=== PATIENT | female | born 1945 | race Caucasian/White ===

== ENCOUNTER 2017-01-06 09:03 | Outpatient (RCR) | payer MEDICARE, BC | END 2017-01-29 15:31 | LOC: OPPGERO 09:03 | DX: F32.1 Major depressive disorder, single episode, moderate (principal); F41.1 Generalized anxiety disorder ==

== ENCOUNTER 2017-02-01 08:28 | Outpatient (RCR) | payer MEDICARE, BC | END 2017-03-03 16:52 | LOC: OPPGERO 08:28 | DX: F32.1 Major depressive disorder, single episode, moderate (principal); F41.1 Generalized anxiety disorder ==

== ENCOUNTER 2017-03-04 11:27 | Outpatient (RCR) | payer MEDICARE, BC | END 2017-04-02 15:54 | LOC: OPPGERO 11:27 | DX: F32.2 Major depressive disorder, single episode, severe without psychotic features (principal); F41.1 Generalized anxiety disorder ==

== ENCOUNTER 2017-04-05 09:14 | Outpatient (RCR) | payer MEDICARE, BC | END 2017-05-03 15:17 | LOC: OPPGERO 09:14 | DX: F32.2 Major depressive disorder, single episode, severe without psychotic features (principal); F41.1 Generalized anxiety disorder ==

== ENCOUNTER 2017-05-04 09:04 | Outpatient (RCR) | payer MEDICARE, BC | END 2017-06-03 14:36 | disposition still patient (30) | LOC: OPPGERO 09:04 | DX: F32.2 Major depressive disorder, single episode, severe without psychotic features (principal); F41.1 Generalized anxiety disorder ==

== ENCOUNTER 2017-06-04 08:35 | Outpatient (RCR) | payer MEDICARE, BC | END 2017-07-02 15:20 | LOC: OPPGERO 08:35 | DX: F32.2 Major depressive disorder, single episode, severe without psychotic features (principal); F41.1 Generalized anxiety disorder ==